=== PATIENT | male | born 1985 | race Caucasian/White ===

== ENCOUNTER → 2021-03-06 | Outpatient (CLI) | payer OTHER ==
[~2021-03-06] MED LIST: NORCO 5-325 TA1 EAC2 PO; ZOFRAN ODT4 MG DISSOLVE
== END ==
LOC: M.ULTRA 16:00
PROVIDERS: ATTEND Nurse Practitioner Family
DX: I82.432 Acute embolism and thrombosis of left popliteal vein (principal); I82.442 Acute embolism and thrombosis of left tibial vein; M79.89 Other specified soft tissue disorders

== ENCOUNTER 2021-03-13 12:23 | Emergency (ER) | payer OTHER ==
[~2021-03-13] VITALS: Ht 180.3 cm; Wt 115.7 kg
[2021-03-13] MEDS ORDERED: ELIQUIS2.5 MG PO (12:32)
[2021-03-13] MEDS ORDERED: VENTOLIN HFA 1818 GM INH (14:42)
[2021-03-13] MEDS ORDERED: PREDNISONE 20 M20 M1 PO (14:42)
[2021-03-13] MEDS ORDERED: HYDROCODON-ACE1 EAC7 PO (14:42)
[2021-03-13] MEDS ORDERED: ZPAK PO (14:42)
[2021-03-13 15:07] LABS: HEMATOCRIT 44.5 % (42.0-52.0); HEMOGLOBIN 15.6 gm/dL (14.0-18.0); MCH 35.2 pg (26.0-34.0); MCHC 35.2 g/dL (28.0-37.0); MCV 100.1 fL (80.0-100.0); NUCLEATED RBCS 0 /100WBC; PLATELET COUNT* 192 thou/uL (150-400); RBC 4.44 mil/uL (4.50-6.00); RDW-CV 14.4 % (10.5-14.5); WBC 3.4 thou/uL (4.0-11.0)
[2021-03-13 15:11] LABS: CALCIUM 8.1 mg/dL (8.5-10.1); CREATININE 1.1 mg/dL (0.6-1.3)
[2021-03-13 15:16] LABS: ALBUMIN 3.3 g/dL (3.4-5.0); TOTAL BILIRUBIN 0.4 mg/dL (<0.1-1.0); TOTAL PROTEIN 7.2 g/dL (6.4-8.2)
[2021-03-13 15:18] LABS: POTASSIUM 2.9 mmol/L (3.5-5.1)
[2021-03-13 16:08] LABS: ABSOLUTE LYMPHOCYTES 0.6 thou/uL (0.8-5.3); ABSOLUTE MONOCYTES 0.6 thou/uL (0.0-1.2); ABSOLUTE NEUTROPHILS 2.2 thou/uL (1.6-8.1); PLATELET ESTIMATE ADEQUATE
--- NOTE | 2021-03-13 16:27 | EKG ---
[place] [address] ELECTROCARDIOGRAM REPORT Name: JASON LESTER Room: [facility]#: [id number] Admission: 03/13/21 Attend Phys: Discharge: Date of : 87 Date of Service: 03/13/21 1455 Report #: [id number] THIS REPORT FOR: //name// [facility] ED Test Date: 2021-03-13 Test Time: 14:55:22 Pat Name: JASON LESTER Department: Room: Gender: Rehab Assistant: : [id number] Requested By: Khoa Quintana Order Number: [id number] MD: Jason Cardona Measurements Intervals [place] Rate: 92 P: 36 OR: 151 QRS: 26 QRSD: 98 T: 28 QT: 380 QTc: 471 Interpretive Statements Sinus rhythm Compared to ECG 09/23/2019 22:52:27 Sinus tachycardia no longer present Electronically Signed On 03-13-2021 16:27:15 [employer] OFF[employer]ER by Jason Cardona [email or web address] <ELECTRONICALLY SIGNED> By: Jason Cardona MD, [facility] 03/13/21 1627 1455 1455 Jason Cardona MD, [facility] /EPI
[2021-03-13 17:42] VITALS: BP 136/78
== END 2021-03-13 17:44 | disposition home or self-care (01) ==
LOC: M.ERS 12:23
PROVIDERS: Family Medicine
DX: I26.99 Other pulmonary embolism without acute cor pulmonale (principal); J40 Bronchitis, not specified as acute or chronic; Z98.890 Other specified postprocedural states; Z79.899 Other long term (current) drug therapy